=== PATIENT | female | born 1990 | race Hispanic/Latino ===

== ENCOUNTER 2021-08-05 12:09 | Emergency (ER) | payer BC ==
[~2021-08-05] VITALS: Ht 177.8 cm; Wt 81.6 kg
[2021-08-05 12:13] VITALS: BP 122/80
[2021-08-05 12:42] LABS: APPEARANCE,URINE CLEAR (CLEAR); BILIRUBIN,URINE NEGATIVE (NEGATIVE); COLOR,URINE YELLOW (YELLOW); GLUCOSE, URINE (UA) NEGATIVE (NEGATIVE); KETONES,URINE NEGATIVE (NEGATIVE); LEUKOCYTE ESTERASE ,URINE NEGATIVE (NEGATIVE); NITRATE,URINE NEGATIVE (NEGATIVE); OCCULT BLOOD,URINE SMALL (NEGATIVE); PROTEIN,URINE NEGATIVE (NEGATIVE); UROBILINOGEN,URINE 0.2 mg/dL (0.2-1.0)
[2021-08-05 13:11] LABS: BACTERIA,URINE Moderate /HPF (None Seen); WBC,URINE 0-1 /HPF (0-1)
[2021-08-05] MEDS ORDERED: BENZ-39 PO (13:41)
[2021-08-05] MEDS ORDERED: ALBU8.5H8 IH (13:41)
[2021-08-05] MEDS ORDERED: ACET-66 PO (13:41)
== END 2021-08-05 13:50 | disposition home or self-care, planned readmission (81) ==
LOC: EDH 12:09
DX: U07.1 COVID-19 (principal); Z90.49 Acquired absence of other specified parts of digestive tract
CPT/HCPCS: 81001; 87088; 87635; 87804 ×2; 87880; 99283; C9803